=== PATIENT | male | born 1965 | race Caucasian/White ===

== ENCOUNTER → 2023-04-29 06:31 | Day surgery (SDC) | payer OTHER, SELFPAY | LOC: GI 06:31 | PROVIDERS: ATTENDING PHYSICIAN Specialist | DX: K22.70 Barrett's esophagus without dysplasia (principal); K22.89 Other specified disease of esophagus | CPT/HCPCS: 43239; 88305; 88342 ==

== ENCOUNTER → 2023-09-30 06:20 | Day surgery (SDC) | payer OTHER, SELFPAY | LOC: GI 06:20 | PROVIDERS: ATTENDING PHYSICIAN Specialist | DX: K22.70 Barrett's esophagus without dysplasia (principal) | CPT/HCPCS: 43239; 88305 ==